=== PATIENT | female | born 1940 | race Caucasian/White ===

== ENCOUNTER 2016-06-13 04:57 | Observation (INO) | payer OTHER ==
--- NOTE | ~2016-06-13 | HP ---
History And Physical [id number] [place]. [address] NAME: SKYLAR ZAZUETA : 44 STATUS : ADM Suzy PAT#: [id number] AGE: 75 ADM/REG DATE : 06/13/16 MR#: [id number] REPORT SERV DATE: 06/13/16 DICTATED BY: LILIANA KRAFT DATE: 06/13/16 REPORT STATUS : Draft TRANSCRIBED BY: MODL DATE: 06/13/16 DATE OF ADMISSION: 06/13/2016 CHIEF COMPLAINT: Chest pain. HISTORY OF PRESENT ILLNESS: This is a 75-year-old female with history of only minimal coronary artery disease by cardiac catheterization in 2011, who states onset of chest pain around 2200 hours last night. She states it was midsternal, severe in intensity with no specific radiation or shortness of breath but some mild diaphoresis. She took two tablespoons of Mylanta with no relief and then some baking soda with water, which also did not help. She then took one of her 's nitroglycerin, which also did not relieve the pain. She subsequently threw up but still did not have any relief of chest pain. Her drove her to our emergency department. The chest pain was resolved in the emergency department after issuing aspirin, nitroglycerin paste, and IV morphine. Currently, she is chest pain-free. The patient denies personal history for DVT, PE, CVA, or VT. She has COPD with some chronic dyspnea on exertion. No increased shortness of breath recently. She had flu-like symptoms a couple weeks ago, which have fully resolved. No fever, cough, or chills over the last week. No orthopnea, PND, or lower extremity edema. MEDICAL HISTORY: 1. Minimal coronary artery disease by cardiac catheterization in 2011. 2. COPD. 3. Hypertension. 4. Mixed hyperlipidemia. 5. Psoriatic arthritis. 6. Tobacco abuse. 7. History of C difficile x2. SURGICAL HISTORY: 1. Left ORIF in 2013. 2. Hysterectomy. 3. Right knee Sandoval cyst removal. 4. Left patellar repair in 11/2015 as well as right arm fracture repair in 2008 and 2015. HOME MEDICATIONS: Vitamin C 500 daily, Lipitor 10 daily, FiberCon two tabs at bedtime, calcium plus vitamin D every morning, Zyrtec 10 daily, vitamin D3 4000 units every morning, Colace 100 b.i.d., Vaseretic 10/25 daily, folic acid 800 daily, Claritin 10 daily, methotrexate 20 mg p.o. weekly, Prilosec 20 mg b.i.d., Demadex 10 mg daily p.r.n. edema. ALLERGIES: NO KNOWN DRUG ALLERGIES. SOCIAL HISTORY: The patient is . Lives with her . She smokes one and a half pack per day and has been smoking for 50 plus years. Denies alcohol or illicit drug use. History And Physical [address] [address] NAME: SKYLAR ZAZUETA : 44 STATUS : ADM Suzy PAT#: [id number] AGE: 75 ADM/REG DATE : 06/13/16 MR#: [id number] REPORT SERV DATE: 06/13/16 DICTATED BY: LILIANA KRAFT DATE: 06/13/16 REPORT STATUS : Draft TRANSCRIBED BY: CATRACHO DATE: 06/13/16 FAMILY HISTORY: Father of a CVA at age 66 and a brother with a CVA in his 50s, still living. REVIEW OF SYSTEMS: Negative except as indicated above. PHYSICAL EXAMINATION: VITAL SIGNS: Blood pressure 141/63, heart rate 70s, temperature 98.2, pulse oximetry 99% on 2 L nasal cannula. BMI 24.3. GENERAL: Well developed, well nourished, in no acute distress HEENT: Anicteric. Normal EOM. Head normocephalic. PERRLA, no xanthelasma. NECK: Supple. No JVD. Carotids normal without bruits. LUNGS: Clear to auscultation bilaterally anterior and posterior. Respirations even and unlabored. CARDIAC: S1, S2 regular rate and rhythm. No murmurs, rubs, or gallops. No chest wall tenderness. ABDOMEN: Normal bowel sounds. Soft and nontender to palpation. No masses or organomegaly. EXTREMITIES: No peripheral edema. DP/PT and radial pulses palpable bilaterally. No clubbing or cyanosis. SKIN: Warm and dry. Normal turgor. No pallor or cyanosis. MUSCULOSKELETAL: Moving all extremities x4. Normal muscle strength. NEURO/PSYCH: Alert and oriented with appropriate affect. LABORATORY DATA: White blood count 13.4, hemoglobin 12.2, hematocrit 36.9, sodium 142, potassium 3.9, BUN 23, creatinine 1.1. Troponin less than 0.02 x2. Chest x-ray shows no acute cardiopulmonary processes. EKGs interpreted by myself indicate normal sinus rhythm with septal Q-waves. No ischemia. ASSESSMENT/PLAN: 1. Substernal chest pain in this 75-year-old female with history of mild coronary artery disease in 2012 by cardiac catheterization. Cardiovascular risk factors include hypertension, hyperlipidemia, as well as family history of cardiovascular disease and tobacco use. She has been observed overnight in the Chest Pain Observation Unit and cardiac markers as well as EKG have been negative. Recommend proceeding with a nuclear stress test today. 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 2. Hypertension. Blood pressure has been mildly elevated while she is here. Continue home blood pressure medication and continue to monitor. 3. Mixed hyperlipidemia, on Lipitor. We will continue. 4. Tobacco abuse. The patient states she has tried to quit in the past and has not been successful. I have urged cessation. 5. Chronic obstructive pulmonary disease with no evidence of wheezing on examination. Appears stable. History And Physical [address] [address] NAME: SKYLAR ZAZUETA : 44 STATUS : ADM Suzy PAT#: [id number] AGE: 75 ADM/REG DATE : 06/13/16 MR#: [id number] REPORT SERV DATE: 06/13/16 DICTATED BY: LILIANA KRAFT DATE: 06/13/16 REPORT STATUS : Draft TRANSCRIBED BY: CATRACHO DATE: 06/13/16 ELÍAS/CATRACHO Liliana Kraft NP / [id number] CC: [employer], [place], [employer] DIRECTOR-BC Swapnil Beltre M.D.
[2016-06-13 04:00] LABS: BASOPHILS 0.1 %; BASOPHILS ABSOLUTE 0.02 10/3/uL (0.0-0.16); EOSINOPHILS 0.1 %; EOSINOPHILS ABSOLUTE 0.01 10/3/uL (0.0-0.53); HEMOGLOBIN 12.2 g/dL (12.0-16.0); IMMATURE GRANULOCYTES 0.3 %; IMMATURE GRANULOCYTES ABSOLUTE 0.04 10/3/uL (0.0-0.11); LYMPHOCYTES ABSOLUTE 1.61 10/3/uL (0.67-4.30); MEAN CORPUS HGB CONC 33.1 g/dL (32.0-36.0); MEAN PLATELET VOLUME 9.4 fL (9.2-13.0); MONOCYTES 1.9 %; MONOCYTES ABSOLUTE 0.26 10/3/uL (0.21-1.20); NEUTROPHILS 85.6 %; NEUTROPHILS ABSOLUTE 11.47 10/3/uL (2.02-8.40); PLATELET COUNT 286 10/3/uL (150-400); RBC DISTRIBUTION WIDTH 16.2 % (12.0-16.0); RED CELL COUNT 4.36 10/6/uL (4.0-5.6)
[2016-06-13 04:01] LABS: HEMATOCRIT 36.9 % (36.0-48.0); MANUAL DIFF NO %; MEAN CORPUSCULAR VOLUME 84.6 fL (80-100); WHITE BLOOD CELLS 13.4 10/3/uL (4.5-10.5)
[2016-06-13 04:06] LABS: INTERNATIONAL NORMAL RATI 1.1 UNITS (-); PARTIAL THROMBO TIME 28.1 SEC (22.5-37.2)
[2016-06-13 04:12] LABS: PROTIME (NOT ORD) 13.7 SEC (12.0-14.5)
[2016-06-13 04:17] LABS: ALBUMIN 3.6 G/DL (3.5-5.0); ALKALINE PHOSPHATASE 110 U/L (45-117); BUN (BLOOD UREA NITROGEN) 23 MG/DL (6-23); CALCIUM, SERUM 8.9 MG/DL (8.5-10.4); CHEST PAIN PROFILE TAT 0 Hrs 22 Mins; CHLORIDE, SERUM 106 MMOL/L (96-112); CO2 (CARBON DIOXIDE) 26 MMOL/L (24-34); CREATININE 1.13 MG/DL (0.55-1.02); DIRECT BILIRUBIN 0.1 MG/DL (0.0-0.4); GFR AFRICAN AMERICAN 56 ML/MIN (>=60); GFR NON AFRICAN AMERICAN 48 ML/MIN (>=60); GLUCOSE, SERUM 142 MG/DL (60-99); INDIRECT BILIRUBIN(NOT ORDER) 0.4 MG/DL (0.1-0.9); POTASSIUM, SERUM 3.9 MMOL/L (3.5-5.3); SGOT(AST) 91 U/L (5-40); SGPT(ALT) 62 U/L (5-65); SODIUM, SERUM 142 MMOL/L (135-148); TOTAL BILIRUBIN 0.5 MG/DL (0-1.2); TOTAL PROTEIN 7.6 G/DL (6.0-8.5); TROPONIN I <0.02 NG/ML (<0.05)
[~2016-06-13 04:57] MED LIST: ACIDOPHILU1 PO; ASAB PO; C5; CALCIUM; CALTRA600D PO; CLARIT10 PO; DEMA10T PO; DIL2TAB PO; DSS PO; DUONEB INH; FIBERCON PO; FISH OIL1200 MG PO; FOLIC PO; HUMI PO; LEVAQUIN750 MG PO; LIPITOR10 PO; MTX2.5 PO; P5 PO; PRILO PO; SPIRIVA INH; VASERETIC10 PO; VENTOLIN HFA INH; VITAMIN D1000 UNI1 PO; ZYRTEC ALLGY10 MG PO
[2016-06-13] MEDS ORDERED: FOLIC ACID800 MCG PO (05:36)
[2016-06-13] MEDS ORDERED: VITAMIN D31000 UNIT PO (05:37)
[2016-06-13] MEDS ORDERED: CALTRA600D PO (05:37)
[2016-06-13] MEDS ORDERED: VITC500 PO (05:38)
== END 2016-06-13 14:27 | disposition home or self-care (01) ==
LOC: ER 04:57 → CDU1 05:05 → CDU2 06:11
PROVIDERS: Nurse Practitioner Acute Care
DX: I25.10 Atherosclerotic heart disease of native coronary artery without angina pectoris (principal); I10 Essential (primary) hypertension; L40.50 Arthropathic psoriasis, unspecified; J44.9 Chronic obstructive pulmonary disease, unspecified; E78.2 Mixed hyperlipidemia; Z90.710 Acquired absence of both cervix and uterus; Z88.1 Allergy status to other antibiotic agents; Z79.899 Other long term (current) drug therapy
CPT/HCPCS: 71010; 78452; 80048; 80076; 83690; 83735; 84484; 85025; 85610; 85730; 93005; 93017; 96374; 96375; 99285; A9270-GY; A9502; G0378; J2405